=== PATIENT | male | born 1940 | race Two or more races ===

== ENCOUNTER 2021-02-01 15:50 | Emergency (ER) | payer OTHER ==
[~2021-02-01] VITALS: Ht 180.3 cm; Wt 70.3 kg
[2021-02-01] MEDS ORDERED: FORTAMET1000 MG (16:11)
[2021-02-01] MEDS ORDERED: AMARYL (16:12)
[2021-02-01] MEDS ORDERED: ADULT ASPIRIN81 MG (16:12)
== END 2021-02-01 20:19 | disposition home or self-care (01) ==
LOC: ER 15:50
DX: R20.0 Anesthesia of skin (principal); Z11.52 Encounter for screening for COVID-19

== ENCOUNTER 2024-02-13 12:21 | Outpatient (CLI) | payer OTHER ==
[~2024-02-13 12:21] MED LIST: ADULT ASPIRIN81 MG; AMARYL; FORTAMET1000 MG
== END 2024-02-13 12:26 | disposition home or self-care (01) ==
LOC: RAD 12:21
PROVIDERS: ATTEND Internal Medicine
DX: R05.9 Cough, unspecified (principal)

== ENCOUNTER 2024-03-19 14:20 | Outpatient (CLI) | payer OTHER | END 2024-03-19 14:27 | disposition home or self-care (01) | LOC: SONOGRAMA 14:20 | PROVIDERS: ATTEND Internal Medicine | DX: E04.2 Nontoxic multinodular goiter (principal) ==

== ENCOUNTER 2024-06-12 12:25 | Inpatient (IN) | payer OTHER ==
[~2024-06-12] VITALS: Ht 152.4 cm; Wt 60.3 kg
--- NOTE | 2024-06-12 13:12 | NUR ---
PACIENTE MASCULINO ALERTA Y ORIENTADO X3, REFERIDO POR EL DOCTOR BRENDA VIEIRA.
[2024-06-12] MEDS ORDERED: 0.9 % SODIUM CHLORIDE 1,000 ML IV STA (14:38)
[2024-06-12] MEDS ORDERED: AZITHROMYCIN 500 MG VIAL IV SCH (14:47)
[2024-06-12] MEDS ORDERED: METRONIDAZOLE/SODIUM CHLORIDE 100 ML IV SCH (14:47)
[2024-06-12] MEDS ORDERED: CEFTRIAXONE SODIUM 2,000 MG VIAL IV SCH (14:47)
--- NOTE | 2024-06-12 15:11 | NUR ---
RN SHAH EDUCA ACERCA DE TX ORDENADO Y REFIERE ENTENDER. SE CANALIZA Y COLECTAN MUESTRAS DE LABORATORIO MEDIANTE MEDIDAS ASEPTICAS. SE ADMINISTRAN MEDICAMENTOS FLORENTIN ORDEN MEDICA.
[2024-06-12] MEDS ORDERED: AZITHROMYCIN 500 MG VIAL IV ONE (15:20)
[2024-06-12] MEDS ORDERED: CEFTRIAXONE SODIUM 2,000 MG VIAL ONE (15:20)
[2024-06-12] MEDS ORDERED: METRONIDAZOLE/SODIUM CHLORIDE 500 MG/100 ML PIGGYBACK IV ONE (15:20)
[2024-06-12 16:19] LABS: ALBUMIN 3.8 gm/dL (3.4-5.0); ALKALINE PHOSPHATASE 235 U/L (50-136); ALT/SGPT 24 U/L (12-78); ANION GAP 13 (10.0-20.0); AST/SGOT 34 U/L (15-37); BILIRUBIN TOTAL 0.97 mg/dL (0.3-1.2); BLOOD UREA NITROGEN 36 mg/dL (7-18); BUN CREA RATIO 24 (7.0-25.0); CALCIUM 10.1 mg/dL (8.5-10.1); CARBON DIOXIDE 29 mEq/L (21-32); CHLORIDE 104 mmol/L (98-107); CREATININE SERUM 1.48 mg/dL (0.70-1.30); GFR 45.62; GLOBULINA 4.9 G/DL (2.4-3.5); GLUCOSE FASTING 93 mg/dL (65-100); OSMOLALITY SERUM 289 MOSM/KG (275-295); PHOSPHOROUS 4.4 mg/dL (2.5-4.9); POTASSIUM 5.01 mEq/L (3.5-5.1); SODIUM 141 mmol/L (136-145); TOTAL PROTEIN 8.7 gm/dL (6.4-8.2)
[2024-06-12 16:27] LABS: C-REACTIVE PROTEIN < 0.29 MG/DL (0.00-0.29)
[2024-06-12 16:28] LABS: T4 FREE 1.48 NG/ML (0.76-1.46)
[2024-06-12 18:59] LABS: HEMOGLOBIN 13.9 g/dL (13-16.00); MEAN CORPUSCULAR HGB CONC 28.2 g/dl (32.0-36.0); RED CELL DISTRIBUTION WIDTH 22.9 % (11.5-14.5)
[2024-06-12] MEDS ORDERED: DEXTROSE 50 % IN WATER 0.5 G/ML DISP.SYRIN IV PRN (19:15)
[2024-06-12] MEDS ORDERED: INSULIN LISPRO 1,000 UNIT/10 ML UNITS SUBCUTANEO PRN (19:15)
[2024-06-12 19:16] LABS: MEAN CELL VOLUME 62.9 fL (80.0-100.00); MEAN CORPUSCULAR HEMOGLOBIN 17.7 pg (27.00-32.0)
[2024-06-12 19:20] LABS: RED BLOOD COUNT 7.85 M/uL (4.00-6.00)
[2024-06-12 19:21] LABS: HEMATOCRIT 49.4 % (39.0-48.0)
[2024-06-12 19:45] LABS: ERYTHROCYTE SEDIMENTATION RATE 13 mm/hr
[2024-06-12 19:46] LABS: PLATELET COUNT 902 K/uL (150-450)
[2024-06-12 20:44] LABS: URINE APPEARANCE Cloudy; URINE BILIRRUBIN Negative (NEGATIVE); URINE BLOOD Negative; URINE COLOR Dark Yellow; URINE GLUCOSE Negative (NEGATIVE); URINE KETONE Trace (NEGATIVE); URINE LEUKOCYTE Trace; URINE NITRATE Negative; URINE PROTEIN 30 (NEGATIVE)
[2024-06-12 20:48] LABS: URINE BACTERIA 682.8 uL (0.0-1933); URINE CAST 2.35 uL (0.0-1.40); URINE EPITHELIAL CELLS 18.5 uL (0.0-38.8); URINE RBC 4.7 uL (0.0-20.8); URINE WBC 13.2 uL (0.0-23.2)
[2024-06-12] MEDS ORDERED: RINGERS SOLUTION,LACTATED 1,000 ML IV SCH (21:15)
[2024-06-12 22:10] LABS: ABG PH 7.352 (7.35-7.45); ABG PO2 79.3 mmHg (80-100); ABG pCO2 40.8 mmHg (35-45); BASE EXCESS -3.2 mmol/l; BICARBONATE 22.1 mmol/l (23-25); SaO2 94.7 %; Tco2 23.3 mmol/l; allen test SATISFACTORY; o2 21 %; puncture site RADIAL RIGHT
[2024-06-13 00:10] VITALS: BP 103/60
[2024-06-13 05:20] VITALS: BP 127/623
[2024-06-13 08:12] VITALS: BP 119/70; O2SAT 98
[2024-06-13] MEDS ORDERED: AZITHROMYCIN 500 MG VIAL IV ONE (08:27)
[2024-06-13] MEDS ORDERED: PANTOPRAZOLE SODIUM 40 MG TABLET.DR PO SCH (09:00)
[2024-06-13] MEDS ORDERED: ENOXAPARIN SODIUM 30 MG/0.3 ML SYRINGE SUBCUTANEO SCH (09:00)
[2024-06-13 09:05] LABS: HEMATOCRIT 46.2 % (39.0-48.0); MEAN CORPUSCULAR HGB CONC 28.3 g/dl (32.0-36.0); PLATELET COUNT 716 K/uL (150-450)
[2024-06-13 09:15] LABS: MEAN CELL VOLUME 63.4 fL (80.0-100.00); MEAN CORPUSCULAR HEMOGLOBIN 17.8 pg (27.00-32.0); RED BLOOD COUNT 7.28 M/uL (4.00-6.00)
[2024-06-13 17:02] VITALS: BP 123/64
[2024-06-14 02:14] VITALS: BP 99/57; O2SAT 97
[2024-06-14] MEDS ORDERED: LEVOTHYROXINE SODIUM 75 MCG TABLET PO SCH (06:00)
[2024-06-14 07:38] LABS: HEMATOCRIT 43.9 % (39.0-48.0); HEMOGLOBIN 12.6 g/dL (13-16.00); MEAN CORPUSCULAR HEMOGLOBIN 18.1 pg (27.00-32.0); MEAN CORPUSCULAR HGB CONC 28.6 g/dl (32.0-36.0); PLATELET COUNT 654 K/uL (150-450); RED BLOOD COUNT 6.94 M/uL (4.00-6.00); RED CELL DISTRIBUTION WIDTH 23.1 % (11.5-14.5)
[2024-06-14] MEDS ORDERED: AZITHROMYCIN 500 MG VIAL IV ONE (07:42)
[2024-06-14 07:54] LABS: MEAN CELL VOLUME 63.2 fL (80.0-100.00)
[2024-06-14 08:54] VITALS: BP 137/77
[2024-06-14 09:08] LABS: ALBUMIN 3.3 gm/dL (3.4-5.0); BILIRUBIN TOTAL 1.01 mg/dL (0.3-1.2); CALCIUM 9.7 mg/dL (8.5-10.1); CREATININE SERUM 0.82 mg/dL (0.70-1.30); GFR 90.17; GLOBULINA 3.9 G/DL (2.4-3.5); MAGNESIUM 1.7 mg/dL (1.8-2.4); PHOSPHOROUS 3.5 mg/dL (2.5-4.9); TOTAL PROTEIN 7.2 gm/dL (6.4-8.2)
[2024-06-14 10:19] LABS: POTASSIUM 5.92 mEq/L (3.5-5.1)
[2024-06-14] MEDS ORDERED: SODIUM POLYSTYRENE SULFONATE 30G/8 TSP PO STA (11:02)
[2024-06-14] MEDS ORDERED: MAGNESIUM SULFATE IN WATER 50 ML IV NR (12:00)
[2024-06-14] MEDS ORDERED: SODIUM POLYSTYRENE SULFONATE 15 G/4 TSP TSP PO SCH (17:00)
[2024-06-14 18:21] VITALS: BP 172/93
[2024-06-14] MEDS ORDERED: METOPROLOL SUCCINATE 25 MG TAB.SR.24H PO NR (19:00)
[2024-06-14] MEDS ORDERED: LOSARTAN POTASSIUM 25 MG TABLET PO NR (19:00)
[2024-06-15 01:39] VITALS: BP 145/71
[2024-06-15] MEDS ORDERED: AZITHROMYCIN 500 MG VIAL IV ONE ×2 (08:25→12:49)
[2024-06-15 08:27] VITALS: BP 114/60
[2024-06-15] MEDS ORDERED: LOSARTAN POTASSIUM 25 MG TABLET PO SCH (09:00)
[2024-06-15] MEDS ORDERED: METOPROLOL SUCCINATE 25 MG TAB.SR.24H PO SCH (09:00)
[2024-06-15 11:51] LABS: HEMATOCRIT 43.3 % (39.0-48.0); RED BLOOD COUNT 6.98 M/uL (4.00-6.00)
[2024-06-15 11:52] LABS: HEMOGLOBIN 12.6 g/dL (13-16.00); PLATELET COUNT 578 K/uL (150-450)
[2024-06-15 11:53] LABS: RED CELL DISTRIBUTION WIDTH 22.6 % (11.5-14.5)
[2024-06-15 12:24] LABS: ALBUMIN 3.2 gm/dL (3.4-5.0); BILIRUBIN TOTAL 1.19 mg/dL (0.3-1.2); CALCIUM 9.7 mg/dL (8.5-10.1); CREATININE SERUM 0.93 mg/dL (0.70-1.30); GFR 77.98; GLOBULINA 3.9 G/DL (2.4-3.5); POTASSIUM 5.13 mEq/L (3.5-5.1); TOTAL PROTEIN 7.1 gm/dL (6.4-8.2)
[2024-06-15 17:01] VITALS: BP 137/77
[2024-06-15] MEDS ORDERED: SODIUM POLYSTYRENE SULFONATE 15 G/4 TSP TSP PO SCH (20:30)
[2024-06-16 02:18] VITALS: BP 138/73; O2SAT 99
[2024-06-16] MEDS ORDERED: AZITHROMYCIN 500 MG VIAL IV ONE (07:47)
[2024-06-16 08:53] VITALS: BP 150/82
[2024-06-16] MEDS ORDERED: SODIUM POLYSTYRENE SULFONATE 15 G/4 TSP TSP PO SCH (09:00)
[2024-06-16] MEDS ORDERED: IRBESARTAN 75 MG TABLET PO SCH (16:48)
[2024-06-16 17:38] VITALS: BP 135/71; O2SAT 98
[2024-06-17 01:21] VITALS: BP 128/66; O2SAT 99
[2024-06-17] MEDS ORDERED: AZITHROMYCIN 500 MG VIAL IV ONE (07:31)
[2024-06-17 08:05] LABS: ALBUMIN 3.3 gm/dL (3.4-5.0); BILIRUBIN TOTAL 1.38 mg/dL (0.3-1.2); CALCIUM 9.2 mg/dL (8.5-10.1); CREATININE SERUM 0.96 mg/dL (0.70-1.30); GFR 75.17; MAGNESIUM 1.9 mg/dL (1.8-2.4); PHOSPHOROUS 2.7 mg/dL (2.5-4.9); POTASSIUM 3.89 mEq/L (3.5-5.1); TOTAL PROTEIN 7.3 gm/dL (6.4-8.2)
[2024-06-17 09:34] VITALS: BP 117/60
[2024-06-17 17:26] VITALS: BP 138/74; O2SAT 96
[2024-06-18 00:30] VITALS: BP 132/60; O2SAT 98
[2024-06-18] MEDS ORDERED: INSULIN LISPRO 1,000 UNIT/10 ML UNITS SUBCUTANEO PRN (06:30)
[2024-06-18 07:03] LABS: HEMATOCRIT 42.5 % (39.0-48.0); HEMOGLOBIN 12.6 g/dL (13-16.00); MEAN CORPUSCULAR HEMOGLOBIN 18.5 pg (27.00-32.0); MEAN CORPUSCULAR HGB CONC 29.8 g/dl (32.0-36.0); PLATELET COUNT 392 K/uL (150-450); RED BLOOD COUNT 6.85 M/uL (4.00-6.00); RED CELL DISTRIBUTION WIDTH 22.6 % (11.5-14.5)
[2024-06-18 07:19] LABS: MEAN CELL VOLUME 62.1 fL (80.0-100.00)
[2024-06-18 08:49] VITALS: BP 112/59
[2024-06-18] MEDS ORDERED: AZITHROMYCIN 500 MG VIAL IV ONE (08:58)
[2024-06-18] MEDS ORDERED: TOPROL XL25 M1 PO (13:11)
[2024-06-18] MEDS ORDERED: IRBESARTAN75 MG PO (13:11)
[2024-06-18] MEDS ORDERED: LEVOTHYROXINE75 MCG PO (13:12)
[2024-06-18 16:33] VITALS: BP 194/62
[2024-06-18 16:34] VITALS: BP 128/62
== END 2024-06-18 17:18 | disposition home or self-care (01) | DRG 194 ==
LOC: ER 12:27 → MEDJ 19:33 → SEC-K 19:33 → MEDJ 06-13 03:11
PROVIDERS: General Practice; ADMIT Internal Medicine; ATTEND Internal Medicine
PROC: BB24ZZZ Computerized Tomography (CT Scan) of Bilateral Lungs (ICD-10-PCS; principal; 2024-06-12)
PROC: BW21ZZZ Computerized Tomography (CT Scan) of Abdomen and Pelvis (ICD-10-PCS; 2024-06-12)
DX: J18.8 Other pneumonia, unspecified organism (principal); D47.1 Chronic myeloproliferative disease; I25.810 Atherosclerosis of coronary artery bypass graft(s) without angina pectoris; N17.9 Acute kidney failure, unspecified; D72.829 Elevated white blood cell count, unspecified; D75.839 Thrombocytosis, unspecified; R16.1 Splenomegaly, not elsewhere classified; E11.65 Type 2 diabetes mellitus with hyperglycemia; E87.5 Hyperkalemia; I13.10 Hypertensive heart and chronic kidney disease without heart failure, with stage 1 through stage 4 chronic kidney disease, or unspecified chronic kidney disease; E11.22 Type 2 diabetes mellitus with diabetic chronic kidney disease; N18.31 Chronic kidney disease, stage 3a; Z79.84 Long term (current) use of oral hypoglycemic drugs; Z95.1 Presence of aortocoronary bypass graft

== ENCOUNTER 2024-07-04 09:13 | Outpatient (CLI) | payer OTHER ==
[~2024-07-04 09:13] MED LIST changes: +IRBESARTAN75 MG PO; +LEVOTHYROXINE75 MCG PO; +TOPROL XL25 M1 PO
== END 2024-07-04 09:15 | disposition home or self-care (01) ==
LOC: NUCLEAR 09:13
PROVIDERS: ATTEND Internal Medicine
DX: R60.0 Localized edema (principal)

== ENCOUNTER 2024-08-02 14:40 | Emergency (ER) | payer OTHER ==
[~2024-08-02] VITALS: Ht 180.3 cm; Wt 60.3 kg
[2024-08-02] MEDS ORDERED: KETOROLAC TROMETHAMINE 60 MG VIAL IM ONE ×2 (15:00→15:28)
== END 2024-08-02 20:39 | disposition home or self-care (01) ==
LOC: ER 14:40
DX: M54.50 Low back pain, unspecified (principal); E11.9 Type 2 diabetes mellitus without complications; Z79.84 Long term (current) use of oral hypoglycemic drugs
CPT/HCPCS: 72131; 96372; 99284; J1885

== ENCOUNTER 2024-10-03 11:39 | Inpatient (IN) | payer OTHER ==
[~2024-10-03] VITALS: Ht 180.3 cm; Wt 63.5 kg
--- NOTE | 2024-10-03 12:09 | NUR ---
SE RECIBE PTE ALERTA, ORIENTADO X3 Y AMBULANDO. PTE REFIERE DIARREAS HACE UN MES EN EL MACARIO DE HOY DIARREAS X2 Y DOLOR EN PIERNA IZQUIERDA. SE MIDEN S/V Y SE UBICA.
[2024-10-03] MEDS ORDERED: RINGERS SOLUTION,LACTATED 1,000 ML IV STA (13:30)
[2024-10-03] MEDS ORDERED: CEFAZOLIN SODIUM 1,000 MG VIAL IV STA (13:31)
[2024-10-03] MEDS ORDERED: DIPHENOXYLATE HCL/ATROPINE 1 UDTAB TABLET PO STA (13:31)
[2024-10-03] MEDS ORDERED: HYOSCYAMINE SULFATE 0.125 MG TAB.SUBL SL ONE (13:45)
[2024-10-03] MEDS ORDERED: HYOSCYAMINE SULFATE 0.125 MG TAB.SUBL ONE (14:29)
[2024-10-03] MEDS ORDERED: CEFAZOLIN SODIUM 1,000 MG VIAL ONE (14:30)
[2024-10-03 15:45] LABS: EOS % 2.3 % (0.7-7.0); HEMATOCRIT 40.7 % (40.1-51.0); HEMOGLOBIN 11.3 g/dL (13.7-17.5); LYMPH # 1.59 (1.18-3.74); LYMPH % 7.2 % (19.3-53.1); MEAN CORPUSCULAR HEMOGLOBIN 17.9 pg (25.6-32.2); MONO # 1.45 (0.24-0.82); MONO % 6.6 % (4.7-12.5); NEUT # 18.15 (1.56-6.13); NEUT % 82.4 % (34.0-71.1); PLATELET COUNT 471 K/uL (163-369); RED BLOOD COUNT 6.33 M/uL (4.63-6.08); RED CELL DISTRIBUTION WIDTH 24.5 % (11.6-14.4)
--- NOTE | 2024-10-03 15:48 | NUR ---
PACIENTE ES ORIENTADO POR JACI HIGGINBOTHAM SOBRE TRATAMIENTO MEDICO EL CUAL INDICA ENTENDER. SE REALIZARON EXTRACCION DE MUESTRAS Y CANALIZACION BAJO MEDIDAS ASEPTICAS. SE ADMINISTRARON MEDICAMENTO FLORENTIN ORDEN MEDICA.
[2024-10-03 16:08] LABS: ALBUMIN 3.3 gm/dL (3.4-5.0); BILIRUBIN TOTAL 1.98 mg/dL (0.3-1.2); CALCIUM 8.9 mg/dL (8.5-10.1); CREATININE SERUM 1.31 mg/dL (0.70-1.30); GFR 52.38; GLOBULINA 4.8 G/DL (2.4-3.5); POTASSIUM 4.42 mEq/L (3.5-5.1); TOTAL PROTEIN 8.1 gm/dL (6.4-8.2)
[2024-10-03] MEDS ORDERED: CEFTRIAXONE SODIUM 2,000 MG in 0.9 % SODIUM CHLORIDE 100 ML IV SCH (20:10)
[2024-10-03] MEDS ORDERED: MORPHINE SULFATE 2 MG/ML CARTRIDGE IV SCH (20:15)
[2024-10-03] MEDS ORDERED: DEXTROSE 50 % IN WATER 0.5 G/ML DISP.SYRIN IV PRN (20:15)
[2024-10-03] MEDS ORDERED: RINGERS SOLUTION,LACTATED 1,000 ML IV SCH (20:15)
[2024-10-03] MEDS ORDERED: ACETAMINOPHEN 500 MG GEL..CAP PO PRN (20:15)
[2024-10-03] MEDS ORDERED: LACTOBACILLUS ACIDOPHILUS 1 CAP CAP PO SCH (20:15)
[2024-10-03] MEDS ORDERED: INSULIN LISPRO 1,000 UNIT/10 ML UNITS SUBCUTANEO PRN (20:15)
[2024-10-03] MEDS ORDERED: CEFTRIAXONE SODIUM 2,000 MG VIAL ONE (21:33)
[2024-10-03 21:37] LABS: INR 1.26; PROTHROMBIN TIME 13.5 SECONDS (9.0-11.5)
[2024-10-04 00:46] LABS: URINE APPEARANCE Clear; URINE BILIRRUBIN Negative (NEGATIVE); URINE BLOOD Negative; URINE COLOR Dark Yellow; URINE GLUCOSE Negative (NEGATIVE); URINE KETONE Trace (NEGATIVE); URINE LEUKOCYTE Trace; URINE NITRATE Negative
[2024-10-04 00:50] LABS: URINE EPITHELIAL CELLS 5.8 uL (0.0-38.8); URINE WBC 7.4 uL (0.0-23.2)
[2024-10-04 00:51] LABS: URINE CAST 0.58 uL (0.0-1.40); URINE PROTEIN 100 (NEGATIVE); URINE RBC 1.3 uL (0.0-20.8)
[2024-10-04 04:10] VITALS: BP 134/75
[2024-10-04] MEDS ORDERED: LEVOTHYROXINE SODIUM 75 MCG TABLET PO SCH (06:00)
[2024-10-04 06:18] VITALS: O2SAT 90
[2024-10-04] MEDS ORDERED: METOPROLOL SUCCINATE 25 MG TAB.SR.24H PO SCH (09:00)
[2024-10-04] MEDS ORDERED: FAMOTIDINE/PF 20 MG in 0.9 % SODIUM CHLORIDE 8 ML IV PUSH SCH (09:00)
[2024-10-04] MEDS ORDERED: ENOXAPARIN SODIUM 40 MG/0.4 ML SYRINGE SUBCUTANEO SCH (09:00)
[2024-10-04] MEDS ORDERED: IRBESARTAN 75 MG TABLET PO SCH (09:00)
[2024-10-04 16:43] VITALS: BP 150/75; O2SAT 98
[2024-10-04 17:04] VITALS: O2SAT 97
[2024-10-04 20:25] VITALS: O2SAT 99
[2024-10-04] MEDS ORDERED: NITROGLYCERIN IN 5 % DEXTROSE 50 MG/250 ML BOTTLE IV SCH (20:38)
[2024-10-04] MEDS ORDERED: FUROsemide 20 MG/2 ML VIAL IV SCH (21:00)
[2024-10-05] MEDS ORDERED: METRONIDAZOLE/SODIUM CHLORIDE 100 ML IV SCH (01:00)
[2024-10-05 02:10] VITALS: BP 150/81; O2SAT 96
[2024-10-05] MEDS ORDERED: NITROGLYCERIN IN 5 % DEXTROSE 250 ML IV SCH (06:30)
[2024-10-05] MEDS ORDERED: IRBESARTAN 75 MG TABLET PO SCH ×2 (09:00→17:00)
[2024-10-05 09:19] VITALS: BP 141/77; O2SAT 99
[2024-10-05 12:18] LABS: BASO % 0.9 % (0.1-1.2); EOS # 0.44 (0.04-0.54); EOS % 2.2 % (0.7-7.0); HEMATOCRIT 42.4 % (40.1-51.0); HEMOGLOBIN 11.8 g/dL (13.7-17.5); LYMPH # 0.81 (1.18-3.74); MEAN CORPUSCULAR HEMOGLOBIN 17.7 pg (25.6-32.2); MONO # 0.91 (0.24-0.82); MONO % 4.5 % (4.7-12.5); NEUT % 87.8 % (34.0-71.1); PLATELET COUNT 518 K/uL (163-369); RED BLOOD COUNT 6.65 M/uL (4.63-6.08); RED CELL DISTRIBUTION WIDTH 24.6 % (11.6-14.4)
[2024-10-05 12:44] LABS: ALBUMIN 3.4 gm/dL (3.4-5.0); BILIRUBIN TOTAL 2.09 mg/dL (0.3-1.2); CALCIUM 9.1 mg/dL (8.5-10.1); CREATININE SERUM 0.98 mg/dL (0.70-1.30); GFR 73.22; GLOBULINA 5.1 G/DL (2.4-3.5); MAGNESIUM 1.9 mg/dL (1.8-2.4); PHOSPHOROUS 2.6 mg/dL (2.5-4.9); POTASSIUM 4.13 mEq/L (3.5-5.1); TOTAL PROTEIN 8.5 gm/dL (6.4-8.2)
[2024-10-05 16:43] VITALS: BP 148/84; O2SAT 96
[2024-10-06 02:49] VITALS: BP 143/82; O2SAT 96
[2024-10-06 08:45] VITALS: BP 85/60
== END 2024-10-06 14:53 | disposition left against medical advice (07) | DRG 291 ==
LOC: ER 11:39 → MEDI 20:50
PROVIDERS: General Practice; ADMIT Internal Medicine; ATTEND Internal Medicine
PROC: BW21ZZZ Computerized Tomography (CT Scan) of Abdomen and Pelvis (ICD-10-PCS; principal; 2024-10-03)
PROC: BW24ZZZ Computerized Tomography (CT Scan) of Chest and Abdomen (ICD-10-PCS; 2024-10-03)
PROC: BW24ZZZ Computerized Tomography (CT Scan) of Chest and Abdomen (ICD-10-PCS; 2024-10-03)
PROC: BW40ZZZ Ultrasonography of Abdomen (ICD-10-PCS; 2024-10-03)
PROC: B24BZZZ Ultrasonography of Heart with Aorta (ICD-10-PCS; 2024-10-04)
PROC: 4A12X4Z Monitoring of Cardiac Electrical Activity, External Approach (ICD-10-PCS; 2024-10-04)
DX: I13.0 Hypertensive heart and chronic kidney disease with heart failure and stage 1 through stage 4 chronic kidney disease, or unspecified chronic kidney disease (principal); A41.9 Sepsis, unspecified organism; J18.9 Pneumonia, unspecified organism; N17.9 Acute kidney failure, unspecified; D47.1 Chronic myeloproliferative disease; I50.30 Unspecified diastolic (congestive) heart failure; C90.00 Multiple myeloma not having achieved remission; E86.0 Dehydration; K52.89 Other specified noninfective gastroenteritis and colitis; E03.9 Hypothyroidism, unspecified; K74.69 Other cirrhosis of liver; I95.89 Other hypotension; E11.22 Type 2 diabetes mellitus with diabetic chronic kidney disease; N18.9 Chronic kidney disease, unspecified; Z79.4 Long term (current) use of insulin; I25.10 Atherosclerotic heart disease of native coronary artery without angina pectoris; Z95.1 Presence of aortocoronary bypass graft; I27.20 Pulmonary hypertension, unspecified; E11.65 Type 2 diabetes mellitus with hyperglycemia